=== PATIENT | male | born 1925 | race Caucasian/White ===

== ENCOUNTER 2017-04-14 16:28 | Inpatient (IN) | payer MEDICARE, OTHER ==
[2017-04-14] MEDS ORDERED: Pantoprazole 40 MG Vial IVPUSH ONE (16:59)
--- NOTE | 2017-04-14 17:46 | EDM.PDOC ---
ED HPI GENERAL MEDICAL PROBLEM - General Chief Complaint: General Stated Complaint: low hemoglobin, dark stools Time Seen by Provider: 04/14/17 16:37 Source of Information: Reports: Patient, Alf Records History Limitations: Reports: No Limitations, Other (Family says patient's memory is not very good at times) - History of Present Illness INITIAL COMMENTS - FREE TEXT/NARRATIVE: Patient is resident of [facility]. Noted to have dark stools today, lower Hgb 6.6, and appears weaker than usual. Sent by EMS for evaluation. Patient does not have much in the way of complaints, but said that he had a bit of abdominal discomfort earlier. He is not aware of any rectal bleeding. No fevers/ chills. No reported recent medication changes. No nausea/emesis. Has been eating ok. No HEENT/Resp/CV/Neuro changes. Patient has had stroke in past. Is on Coumadin. INR 3.0 today. Usually doctors with in [place]. No other changes on ROS. - Related Data Allergies Allergy/AdvReac Type Severity Reaction Status Date / Time No Known Allergies Allergy Verified 04/14/17 16:31 Home Meds: Home Meds Acetaminophen [Tylenol] 650 mg PO Q4HR 04/14/17 [History] Aspirin [Halfprin] 81 mg PO BRK 04/14/17 [History] Carvedilol [Carvedilol] 1 tab PO BID 04/14/17 [History] Doxepin HCl [Doxepin] 10 mg PO BEDTIME 04/14/17 [History] Furosemide [Lasix] 20 mg PO BID 04/14/17 [History] Loratadine [Claritin] 10 mg PO Q48H PRN 04/14/17 [History] Losartan Potassium [Cozaar] 50 mg PO DAILY@1600 04/14/17 [History] Lovastatin [Mevacor] 10 mg PO BEDTIME 04/14/17 [History] Multivitamin [Multivitamins] 1 cap PO DAILY 04/14/17 [History] Nitroglycerin [Nitrostat] 0.4 mg SL Q5M 04/14/17 [History] Ranitidine HCl [Zantac 75] 150 mg PO BID 04/14/17 [History] Sennosides/Docusate Sodium [Senokot-S Tablet] 1 tab PO BID PRN 04/14/17 [History ] Spironolactone [Spironolactone] 25 mg PO DAILY 04/14/17 [History] Ubidecarenone [Coq10] 100 mg PO DAILY 04/14/17 [History] Warfarin [Coumadin] 2.5 mg PO SUTUWETHFRSA@1600 04/14/17 [History] Warfarin [Coumadin] 5 mg PO MO@1600 04/14/17 [History] Past Medical History HEENT History: Reports: Allergic Rhinitis Cardiovascular History: Reports: Afib, CAD, Heart Failure, High Cholesterol, Hypertension, Other (See Below) (aortic valve insufficiency, mitral valve insufficiency) Genitourinary History: Reports: BPH, Chronic Renal Insuffiency, Other (See Below ) (obstructive/reflux uropathy) Musculoskeletal History: Reports: Osteoporosis Neurological History: Reports: CVA, Other (See Below) (Hemiplegia/hemiparesis on right side) Psychiatric History: Reports: Anxiety Hematologic History: Reports: Anemia - History Comment History Comment: also history of hypokalemia, muscle spasm, chronic pain, vitamin D deficiency. Social & Family History - Tobacco Use Smoking Status *Q: Never Smoker Second Hand Smoke Exposure: No - Recreational Drug Use Recreational Drug Use: No ED ROS GENERAL - Review of Systems Review Of Systems: See Below Constitutional: Reports: Weakness, Fatigue. Denies: Fever, Chills, Diaphoresis , Weight Loss, Weight Gain HEENT: Reports: No Symptoms Respiratory: Reports: No Symptoms Cardiovascular: Reports: No Symptoms GI/Abdominal: Reports: Abdominal Pain, Hematochezia. Denies: Constipation, Diarrhea, Distension, Nausea, Vomiting : Reports: No Symptoms Musculoskeletal: Reports: No Symptoms Skin: Reports: No Symptoms Neurological: Reports: No Symptoms Psychiatric: Reports: No Symptoms Hematologic/Lymphatic: Reports: No Symptoms ED EXAM, GENERAL - Physical Exam Exam: See Below Exam Limited By: No Limitations General Appearance: Alert, No Apparent Distress, Obese Eye Exam: Bilateral Eye: EOMI, PERRL Ears: Normal External Exam, Normal Canal, Other (bilateral cerumen blocks view of TMs) Nose: No: No Blood, Nasal Swelling, Nasal Drainage Throat/Mouth: Normal Inspection, Normal Lips, Normal Teeth (no dentures), Normal Oropharynx, Normal Voice, No Airway Compromise Head: Atraumatic, Normocephalic Neck: Supple, Non-Tender Respiratory/Chest: No Respiratory Distress, Lungs Clear, Normal Breath Sounds, No Accessory Muscle Use, Chest Non-Tender Cardiovascular: Normal Peripheral Pulses, Systolic Murmur, Irregularly Irregular Peripheral Pulses: 2+: Radial (L), Radial (R) GI/Abdominal: Normal Bowel Sounds, Soft, Non-Tender, No Distention, No Abnormal Bruit (Male) Exam: Deferred Rectal (Males) Exam: Normal Rectal Tone, Black Stool, Heme + Stool. No: Prostate Nodule Back Exam: Normal Inspection. No: CVA Tenderness (L), CVA Tenderness (R), Muscle Spasm, Paraspinal Tenderness, Vertebral Tenderness Extremities: Normal Inspection, Normal Capillary Refill, Other (mild discomfort with palpation of right lower leg, patient says it is always like that. Mild edema bilateral lower extremities. ) Neurological: Alert, Oriented, Normal Cognition, Other (Hemiplegia/hemiparesis on right side) Psychiatric: Normal Affect, Normal Mood Skin Exam: Warm, Dry, Other (pale) Course - Vital Signs Last Recorded V/S: Last Vital Signs Temp 36.4 C 04/14/17 18:54 Pulse 75 04/14/17 18:54 Resp 18 04/14/17 16:54 BP 96/31 L 04/14/17 18:54 Pulse Ox 83 L 04/14/17 18:54 - Orders/Labs/Meds Orders: Active Orders 24 hr Category Date Time Status PACKED CELLS [RED BLOOD CELLS LP] [BBK] Stat Lab 04/14/17 17:30 Results TYPE AND SCREEN [BBK] Stat Lab 04/14/17 17:30 Results Bisacodyl [Dulcolax] Med 04/15/17 18:00 Once 10 mg PO ONETIME ONE Polyethylene Glycol 3350 [MiraLAX] Med 04/16/17 12:00 Once 238 gm PO ONETIME ONE Sodium Chloride 0.9% [Saline Flush] Med 04/14/17 16:59 Active 10 ml FLUSH ASDIRECTED PRN Saline Lock Insert [OM.PC] Routine Oth 04/14/17 16:59 Ordered Medication Orders Bisacodyl (Dulcolax) 10 mg PO ONETIME ONE Stop: 04/15/17 18:01 Polyethylene Glycol (Miralax) 238 gm PO ONETIME ONE Stop: 04/16/17 12:01 Sodium Chloride (Saline Flush) 10 ml FLUSH ASDIRECTED PRN PRN Reason: Keep Vein Open Labs: Laboratory Tests 04/14/17 Range/Units 17:30 Blood Type O POSITIVE Gel Antibody Screen Negative Crossmatch See Detail Meds: Medications Generic Name Dose Route Start Last Admin Trade Name Freq PRN Reason Stop Dose Admin Bisacodyl 10 mg 04/15/17 18:00 Dulcolax PO 04/15/17 18:01 ONETIME ONE Polyethylene Glycol 238 gm 04/16/17 12:00 Miralax PO 04/16/17 12:01 ONETIME ONE Sodium Chloride 10 ml 04/14/17 16:59 Saline Flush FLUSH ASDIRECTED PRN Keep Vein Open Discontinued Medications Generic Name Dose Route Start Last Admin Trade Name Freq PRN Reason Stop Dose Admin Pantoprazole Sodium 80 mg 04/14/17 16:59 04/14/17 17:16 Protonix Iv IVPUSH 04/14/17 17:00 80 mg .BOLUS ONE Administration - Re-Assessments/Exams Free Text/Narrative Re-Assessment/Exam: 04/14/17 18:03 Patient admitted for treatment of GI bleed. Planned EGD and colonoscopy on . Protonix given in ER. Two units PRBC ordered. Departure - Departure Time of Disposition: 17:45 Disposition: Admitted As Inpatient 68 Condition: Good Clinical Impression: GI bleed Qualifiers: GI bleed type/associated pathology: unspecified gastrointestinal hemorrhage type Qualified Code(s): K92.2 - Gastrointestinal hemorrhage, unspecified - Discharge Information - Problem List & Annotations (1) GI bleed SNOMED Code(s): 80373723 Code(s): K92.2 - GASTROINTESTINAL HEMORRHAGE, UNSPECIFIED Status: Acute Current Visit: Yes Qualifiers: GI bleed type/associated pathology: unspecified gastrointestinal hemorrhage type Qualified Code(s): K92.2 - Gastrointestinal hemorrhage, unspecified (2) CAD (coronary artery disease) SNOMED Code(s): 84565632 Code(s): I25.10 - ATHSCL HEART DISEASE OF [place] CORONARY ARTERY W/O ANG PCTRS Status: Chronic Priority: Low Current Visit: No (3) CVA (cerebral vascular accident) SNOMED Code(s): 162064683 Code(s): I63.9 - CEREBRAL INFARCTION, UNSPECIFIED Status: Chronic Priority: Low Current Visit: No Annotation/Comment:: persistent right sided weakness Qualifiers: Laterality of affected vessel: right (4) CHF (congestive heart failure) SNOMED Code(s): 98243533 Code(s): I50.9 - HEART FAILURE, UNSPECIFIED Status: Chronic Priority: Low Current Visit: No Qualifiers: Congestive heart failure type: unspecified congestive heart failure type (5) HTN (hypertension) SNOMED Code(s): 94657436 Code(s): I10 - ESSENTIAL (PRIMARY) HYPERTENSION Status: Chronic Priority : Low Current Visit: No Qualifiers: Hypertension type: unspecified Qualified Code(s): I10 - Essential (primary ) hypertension (6) Afib SNOMED Code(s): 52511899 Code(s): I48.91 - UNSPECIFIED ATRIAL FIBRILLATION Status: Chronic Priority: Low Current Visit: No Qualifiers: Atrial fibrillation type: unspecified Qualified Code(s): I48.91 - Unspecified atrial fibrillation (7) Hyperlipidemia SNOMED Code(s): 67439294 Code(s): E78.5 - HYPERLIPIDEMIA, UNSPECIFIED Status: Chronic Priority: Low Current Visit: No Qualifiers: Hyperlipidemia type: unspecified Qualified Code(s): E78.5 - Hyperlipidemia , unspecified (8) Chronic renal disease SNOMED Code(s): 167777249 Code(s): N18.9 - CHRONIC KIDNEY DISEASE, UNSPECIFIED Status: Chronic Priority: Medium Current Visit: No Qualifiers: Chronic kidney disease stage: stage 4 (severe) Qualified Code(s): N18.4 - Chronic kidney disease, stage 4 (severe) (9) BPH (benign prostatic hyperplasia) SNOMED Code(s): 689192184, 751676691 Code(s): N40.0 - BENIGN PROSTATIC HYPERPLASIA WITHOUT LOWER URINRY TRACT SYMP Status: Chronic Priority: Low Current Visit: No Qualifiers: Lower urinary tract symptom detail: unspecified (10) Anxiety SNOMED Code(s): 21846312 Code(s): F41.9 - ANXIETY DISORDER, UNSPECIFIED Status: Chronic Priority: Low Current Visit: No (11) Allergic rhinitis SNOMED Code(s): 22164755 Code(s): J30.9 - ALLERGIC RHINITIS, UNSPECIFIED Status: Chronic Priority : Low Current Visit: No Qualifiers: Allergic rhinitis seasonality: unspecified seasonality (12) Anemia SNOMED Code(s): 620069416 Code(s): D64.9 - ANEMIA, UNSPECIFIED Status: Chronic Priority: High Current Visit: Yes Annotation/Comment:: Acute exacerbation due to GI bleed. - Problem List Review Problem List Initiated/Reviewed/Updated: Yes - My Orders Last 24 Hours: My Active Orders 04/14/17 16:59 Sodium Chloride 0.9% [Saline Flush] 10 ml FLUSH ASDIRECTED PRN Saline Lock Insert [OM.PC] Routine 04/14/17 17:30 PACKED CELLS [RED BLOOD CELLS LP] [BBK] Stat TYPE AND SCREEN [BBK] Stat 04/15/17 18:00 Bisacodyl [Dulcolax] 10 mg PO ONETIME ONE 04/16/17 12:00 Polyethylene Glycol 3350 [MiraLAX] 238 gm PO ONETIME ONE - Assessment/Plan Admission H&P: Please use this note as an admission H&P Last 24 Hours: My Active Orders 04/14/17 16:59 Sodium Chloride 0.9% [Saline Flush] 10 ml FLUSH ASDIRECTED PRN Saline Lock Insert [OM.PC] Routine 04/14/17 17:30 PACKED CELLS [RED BLOOD CELLS LP] [BBK] Stat TYPE AND SCREEN [BBK] Stat 04/15/17 18:00 Bisacodyl [Dulcolax] 10 mg PO ONETIME ONE 04/16/17 12:00 Polyethylene Glycol 3350 [MiraLAX] 238 gm PO ONETIME ONE Assessment:: GI bleed Plan: Bowel rest. Patient placed NPO except for water and ice chips. Protonix and IV fluids ordered. Continue to monitor Hgb/Hct. Two units PRBC ordered. Scheduled for EGD and colonoscopy this .
[2017-04-14] MEDS ORDERED: Ondansetron 4 MG/2 ML SDV IVPUSH PRN (19:53)
[2017-04-14] MEDS ORDERED: LORazepam 2 MG/ML MDV IV PRN (19:53)
[2017-04-14] MEDS ORDERED: Dextrose 5%-0.45% NaCl 1,000 ML IV SCH (20:00)
[2017-04-14] MEDS ORDERED: Nitroglycerin 0.4 MG Tab.SL SL PRN (21:05)
[2017-04-14] MEDS ORDERED: Furosemide 40 MG/4 ML VIAL IVPUSH ONE (22:00)
[2017-04-15] MEDS: Sodium Chloride 0.9% 10 ML Syringe FLUSH PRN ×2 (01:26→19:58)
[2017-04-15] MEDS: Nitroglycerin 0.4 MG Tab.SL SL SCH ×3 (02:09→02:11)
[2017-04-15] MEDS: Carvedilol 3.125 MG Tab PO SCH ×2 (08:05→17:51)
[2017-04-15] MEDS: Pantoprazole 40 MG Vial IVPUSH SCH ×2 (08:05→19:58)
[2017-04-15] MEDS ORDERED: Sodium Chloride 0.9% 250 ML IV SCH (16:00)
[2017-04-15] MEDS ORDERED: Bisacodyl 5 MG Tab PO ONE (18:00)
--- NOTE | 2017-04-15 20:40 | PCM.PN ---
- General Info Date of Service: 04/15/17 Functional Status: Reports: Pain Controlled - Review of Systems General: Reports: No Symptoms HEENT: Reports: No Symptoms Pulmonary: Reports: No Symptoms Cardiovascular: Reports: No Symptoms Gastrointestinal: Reports: No Symptoms, Other (Gastrointestinal bleeding) Musculoskeletal: Reports: No Symptoms Skin: Reports: No Symptoms Neurological: Reports: No Symptoms Psychiatric: Reports: No Symptoms - Patient Data Vitals - Most Recent: Last Vital Signs Temp 98.6 F 04/15/17 16:00 Pulse 73 04/15/17 17:51 Resp 16 04/15/17 16:00 BP 93/54 L 04/15/17 17:51 Pulse Ox 100 04/15/17 16:00 Weight - Most Recent: 219 lb 15.988 oz I&O - Last 24 Hours: Intake & Output 04/15/17 04/15/17 04/15/17 06:59 14:59 22:59 Intake Total 410 1000 Output Total 850 1150 500 Balance -440 -150 -500 Lab Results Last 24 Hours: Laboratory Results - last 24 hr 04/15/17 04/15/17 04/15/17 Range/Units 06:45 06:45 06:45 WBC 9.6 (4.0-10.2) K/uL RBC 2.54 L (4.33-5.41) M/uL Hgb 7.9 L (13.1-16.8) g/dL Hct 22.7 L* (39.0-49.0) % MCV 89.4 D (84.0-98.0) fL MCH 31.1 (28.2-33.3) pg MCHC 34.8 (31.7-36.0) g/dL RDW 13.6 (11.2-14.1) % Plt Count 160 (150-350) K/uL Neut % (Auto) 74.8 (45.0-80.0) % Lymph % (Auto) 11.1 (10.0-50.0) % [place] % (Auto) 13.3 (2.0-14.0) % Eos % (Auto) 0.7 (0.0-5.0) % Baso % (Auto) 0.1 (0.0-2.0) % Neut # (Auto) 7.18 H (1.40-7.00) K/uL Lymph # (Auto) 1.07 (0.50-3.50) K/uL [place] # (Auto) 1.28 H (0.00-1.00) K/uL Eos # (Auto) 0.07 (0.00-0.50) K/uL Baso # (Auto) 0.01 (0.00-0.20) K/uL PT 27.0 H (9.8-11.7) SEC INR 2.4 Sodium 135 L (136-145) mmol/L Potassium 4.4 (3.5-5.1) mmol/L Chloride 103 (98-107) mmol/L Carbon Dioxide 21.2 (21.0-32.0) mmol/L BUN 130 H* (7-18) mg/dL Creatinine 2.97 H (0.51-1.17) mg/dL Est Cr Clr Drug Dosing 17.89 mL/min Estimated GFR (MDRD) 20 mL/min Glucose 127 H (74-106) mg/dL Calcium 8.3 L (8.5-10.1) mg/dL [id number]-M-Rhbmqlcoqrh Pept 4111 H (0-125) pg/mL 04/15/17 Range/Units 16:30 WBC 11.7 H (4.0-10.2) K/uL RBC 2.58 L (4.33-5.41) M/uL Hgb 8.0 L (13.1-16.8) g/dL Hct 23.5 L* (39.0-49.0) % MCV 91.1 (84.0-98.0) fL MCH 31.0 (28.2-33.3) pg MCHC 34.0 (31.7-36.0) g/dL RDW 14.0 (11.2-14.1) % Plt Count 186 (150-350) K/uL Neut % (Auto) 82.6 H (45.0-80.0) % Lymph % (Auto) 7.1 L (10.0-50.0) % [place] % (Auto) 9.0 (2.0-14.0) % Eos % (Auto) 1.1 (0.0-5.0) % Baso % (Auto) 0.2 (0.0-2.0) % Neut # (Auto) 9.63 H (1.40-7.00) K/uL Lymph # (Auto) 0.83 (0.50-3.50) K/uL [place] # (Auto) 1.05 H (0.00-1.00) K/uL Eos # (Auto) 0.13 (0.00-0.50) K/uL Baso # (Auto) 0.02 (0.00-0.20) K/uL PT (9.8-11.7) SEC INR Sodium (136-145) mmol/L Potassium (3.5-5.1) mmol/L Chloride (98-107) mmol/L Carbon Dioxide (21.0-32.0) mmol/L BUN (7-18) mg/dL Creatinine (0.51-1.17) mg/dL Est Cr Clr Drug Dosing mL/min Estimated GFR (MDRD) mL/min Glucose (74-106) mg/dL Calcium (8.5-10.1) mg/dL [id number]-G-Swrwjqeewtv Pept (0-125) pg/mL Med Orders - Current: Current Medications Carvedilol (Coreg) 3.125 mg PO BID [facility] Last Admin: 04/15/17 17:51 Dose: Not Given Furosemide (Lasix) 40 mg IV ONETIME ONE Stop: 04/15/17 21:01 Sodium Chloride (Normal Saline) 250 mls @ 75 mls/hr IV ASDIRECTED [facility] Lorazepam (Ativan) 1 mg IV Q6H PRN PRN Reason: Nausea/Vomiting Ondansetron HCl (Zofran) 4 mg IVPUSH Q6H PRN PRN Reason: Nausea/Vomiting Pantoprazole Sodium (Protonix Iv) 40 mg IVPUSH Q12H [facility] Last Admin: 04/15/17 19:58 Dose: 40 mg Polyethylene Glycol (Miralax) 238 gm PO ONETIME ONE Stop: 04/16/17 12:01 Sodium Chloride (Saline Flush) 10 ml FLUSH ASDIRECTED PRN PRN Reason: Keep Vein Open Last Admin: 04/15/17 19:58 Dose: 10 ml Discontinued Medications Bisacodyl (Dulcolax) 10 mg PO ONETIME ONE Stop: 04/15/17 18:01 Last Admin: 04/15/17 20:00 Dose: 10 mg Furosemide (Lasix) 40 mg IVPUSH ONETIME ONE Stop: 04/14/17 22:01 Last Admin: 04/14/17 22:59 Dose: 40 mg Dextrose/Sodium Chloride (Dextrose 5%-1/2 Ns) 1,000 mls @ 100 mls/hr IV ASDIRECTED [facility] Last Admin: 04/15/17 01:26 Dose: 100 mls/hr Nitroglycerin (Nitrostat) 0.4 mg SL Q5M [facility] Last Admin: 04/15/17 02:11 Dose: Not Given Nitroglycerin (Nitrostat) 0.4 mg SL Q5M PRN PRN Reason: Chest Pain Stop: 04/14/17 21:16 Pantoprazole Sodium (Protonix Iv) 80 mg IVPUSH .BOLUS ONE Stop: 04/14/17 17:00 Last Admin: 04/14/17 17:16 Dose: 80 mg - Exam General: Alert, Oriented HEENT: Pupils Equal, Pupils Reactive, EOMI, Mucous Membr. Moist/[place] Neck: Supple Lungs: Clear to Auscultation, Normal Respiratory Effort Cardiovascular: Regular Rate, Regular Rhythm GI/Abdominal Exam: Normal Bowel Sounds, Soft, Non-Tender, No Organomegaly, No Distention, No Abnormal Bruit, No Mass, Pelvis Stable Back Exam: Normal Inspection, Full Range of Motion Extremities: Normal Inspection, Normal Range of Motion, Non-Tender, No Pedal Edema, Normal Capillary Refill Skin: Warm, Dry, Intact Wound/Incisions: Healing Well Neurological: No New Focal Deficit Psy/Mental Status: Alert, Normal Affect, Normal Mood - Problem List & Annotations (1) Acute renal failure syndrome SNOMED Code(s): 68480412 Code(s): N17.9 - ACUTE KIDNEY FAILURE, UNSPECIFIED Status: Acute Priority : High Current Visit: Yes Qualifiers: Acute renal failure type: unspecified Qualified Code(s): N17.9 - Acute kidney failure, unspecified (2) GI bleed SNOMED Code(s): 82797026 Code(s): K92.2 - GASTROINTESTINAL HEMORRHAGE, UNSPECIFIED Status: Acute Current Visit: Yes Qualifiers: GI bleed type/associated pathology: unspecified gastrointestinal hemorrhage type Qualified Code(s): K92.2 - Gastrointestinal hemorrhage, unspecified (3) Anemia SNOMED Code(s): 002239140 Code(s): D64.9 - ANEMIA, UNSPECIFIED Status: Chronic Priority: High Current Visit: Yes Annotation/Comment:: Acute exacerbation due to GI bleed. - Problem List Review Problem List Initiated/Reviewed/Updated: Yes - My Orders Last 24 Hours: My Active Orders 04/15/17 15:51 Transfuse RBC [Transfuse Red Blood Cells] [COMM] Urgent Transfuse Red Blood Cells [COMM] Urgent 04/15/17 15:52 Verify Patient Consent Obtain [RC] ASDIRECTED 04/15/17 16:00 Sodium Chloride 0.9% [Normal Saline] 250 ml IV ASDIRECTED 04/15/17 16:04 Transfuse RBC [Transfuse Red Blood Cells] [COMM] Urgent Transfuse Red Blood Cells [COMM] Urgent 04/15/17 16:06 Verify Patient Consent Obtain [RC] ASDIRECTED 04/15/17 21:00 Furosemide [Lasix] 40 mg IV ONETIME ONE - Assessment Assessment:: Anemia secondary to GI bleed Acute renal failure secondary to bleed and dehydration Plan at this time we will go ahead and transfuse him 2 units secondary to the fact that his hemoglobin has dropped to 8 asymptomatic feels weak discuss with them colonoscopy and gastroscopy which he is not sure if he wants at this time he will discuss it with family and I told him that that was fine Transfuse 2 units now and recheck his hemoglobin in the morning and 2 hours posttransfusion - Plan Plan:: Recheck hemoglobin 2 hours posttransfusion and in the morning
[2017-04-15] MEDS ORDERED: Furosemide 40 MG/4 ML VIAL IV ONE (21:00)
[2017-04-16] MEDS: Pantoprazole 40 MG Vial IVPUSH SCH ×2 (07:52→20:18)
[2017-04-16] MEDS: Sodium Chloride 0.9% 10 ML Syringe FLUSH PRN (07:53)
[2017-04-16] MEDS: Carvedilol 3.125 MG Tab PO SCH ×2 (07:53→17:42)
[2017-04-16] MEDS ORDERED: Sodium Chloride 0.9% 1,000 ML IV SCH (08:30)
[2017-04-16] MEDS ORDERED: Polyethylene Glycol 3350 Powder 238 GM Bot PO ONE (12:00)
[2017-04-16] MEDS ORDERED: Furosemide 40 MG/4 ML VIAL IVPUSH ONE ×2 (12:00→19:25)
[2017-04-16] MEDS ORDERED: Furosemide 40 MG/4 ML VIAL IVPUSH SCH (12:00)
[2017-04-16] MEDS ORDERED: Sodium Chloride 0.9% 1,000 ML IV ONE (13:56)
--- NOTE | 2017-04-16 14:25 | PCM.PN ---
- General Info Date of Service: 04/16/17 Admission Dx/Problem (Free Text): GI bleed, anemia Subjective Update: Patient overall feels better. Has more energy. Functional Status: Reports: Pain Controlled, Tolerating Diet (clear liquids. ), Ambulating, Urinating. Denies: New Symptoms - Review of Systems General: Reports: Weakness, Fatigue. Denies: Fever, Chills HEENT: Reports: No Symptoms Pulmonary: Reports: No Symptoms Cardiovascular: Reports: No Symptoms Gastrointestinal: Reports: Other (uncertain if he still notes darker stools. ). Denies: Abdominal Pain, Decreased Appetite, Nausea, Vomiting Genitourinary: Reports: No Symptoms Musculoskeletal: Reports: No Symptoms Skin: Reports: No Symptoms Neurological: Reports: No Symptoms Psychiatric: Reports: No Symptoms - Patient Data Vitals - Most Recent: Last Vital Signs Temp 37.0 C 04/16/17 11:27 Pulse 51 L 04/16/17 11:27 Resp 20 04/16/17 11:27 BP 114/47 L 04/16/17 11:27 Pulse Ox 100 04/16/17 11:27 Weight - Most Recent: 99.79 kg I&O - Last 24 Hours: Intake & Output 04/15/17 04/16/17 04/16/17 22:59 06:59 14:59 Intake Total 50 1420 Output Total 1200 1525 250 Balance -1150 -105 -250 Lab Results Last 24 Hours: Laboratory Results - last 24 hr 04/15/17 04/16/17 04/16/17 Range/Units 16:30 07:00 07:00 WBC 11.7 H 9.8 (4.0-10.2) K/uL RBC 2.58 L 3.03 L (4.33-5.41) M/uL Hgb 8.0 L 9.6 L D (13.1-16.8) g/dL Hct 23.5 L* 27.2 L (39.0-49.0) % MCV 91.1 89.8 (84.0-98.0) fL MCH 31.0 31.7 (28.2-33.3) pg MCHC 34.0 35.3 (31.7-36.0) g/dL RDW 14.0 13.8 (11.2-14.1) % Plt Count 186 162 (150-350) K/uL Neut % (Auto) 82.6 H 74.1 (45.0-80.0) % Lymph % (Auto) 7.1 L 11.7 (10.0-50.0) % [place] % (Auto) 9.0 13.8 (2.0-14.0) % Eos % (Auto) 1.1 0.2 (0.0-5.0) % Baso % (Auto) 0.2 0.2 (0.0-2.0) % Neut # (Auto) 9.63 H 7.27 H (1.40-7.00) K/uL Lymph # (Auto) 0.83 1.15 (0.50-3.50) K/uL [place] # (Auto) 1.05 H 1.35 H (0.00-1.00) K/uL Eos # (Auto) 0.13 0.02 (0.00-0.50) K/uL Baso # (Auto) 0.02 0.02 (0.00-0.20) K/uL Sodium 137 (136-145) mmol/L Potassium 4.3 (3.5-5.1) mmol/L Chloride 103 (98-107) mmol/L Carbon Dioxide 22.0 (21.0-32.0) mmol/L BUN 126 H* (7-18) mg/dL Creatinine 2.73 H (0.51-1.17) mg/dL Est Cr Clr Drug Dosing 19.46 mL/min Estimated GFR (MDRD) 22 mL/min Glucose 111 H (74-106) mg/dL Calcium 8.3 L (8.5-10.1) mg/dL Med Orders - Current: Current Medications Carvedilol (Coreg) 3.125 mg PO BID [facility] Last Admin: 04/16/17 07:53 Dose: 3.125 mg Sodium Chloride (Normal Saline) 1,000 mls @ 250 mls/hr IV ASDIRECTED [facility] Last Admin: 04/16/17 09:20 Dose: 250 mls/hr Sodium Chloride (Normal Saline) 1,000 mls @ 100 mls/hr IV .BOLUS ONE Stop: 04/16/17 23:55 Lorazepam (Ativan) 1 mg IV Q6H PRN PRN Reason: Nausea/Vomiting Ondansetron HCl (Zofran) 4 mg IVPUSH Q6H PRN PRN Reason: Nausea/Vomiting Pantoprazole Sodium (Protonix Iv) 40 mg IVPUSH Q12H [facility] Last Admin: 04/16/17 07:52 Dose: 40 mg Sodium Chloride (Saline Flush) 10 ml FLUSH ASDIRECTED PRN PRN Reason: Keep Vein Open Last Admin: 04/16/17 07:53 Dose: 10 ml Discontinued Medications Bisacodyl (Dulcolax) 10 mg PO ONETIME ONE Stop: 04/15/17 18:01 Last Admin: 04/15/17 20:00 Dose: 10 mg Furosemide (Lasix) 40 mg IVPUSH ONETIME ONE Stop: 04/14/17 22:01 Last Admin: 04/14/17 22:59 Dose: 40 mg Furosemide (Lasix) 40 mg IV ONETIME ONE Stop: 04/15/17 21:01 Last Admin: 04/16/17 00:17 Dose: 40 mg Furosemide (Lasix) 40 mg IVPUSH ONETIME ONE Stop: 04/16/17 12:01 Last Admin: 04/16/17 11:24 Dose: 40 mg Dextrose/Sodium Chloride (Dextrose 5%-1/2 Ns) 1,000 mls @ 100 mls/hr IV ASDIRECTED [facility] Last Admin: 04/15/17 01:26 Dose: 100 mls/hr Sodium Chloride (Normal Saline) 250 mls @ 75 mls/hr IV ASDIRECTED [facility] Last Admin: 04/15/17 22:00 Dose: 75 mls/hr Lactated Ringer's (Ringers, Lactated) 1,000 mls @ 125 mls/hr IV ASDIRECTED [facility] Nitroglycerin (Nitrostat) 0.4 mg SL Q5M [facility] Last Admin: 04/15/17 02:11 Dose: Not Given Nitroglycerin (Nitrostat) 0.4 mg SL Q5M PRN PRN Reason: Chest Pain Stop: 04/14/17 21:16 Pantoprazole Sodium (Protonix Iv) 80 mg IVPUSH .BOLUS ONE Stop: 04/14/17 17:00 Last Admin: 04/14/17 17:16 Dose: 80 mg Polyethylene Glycol (Miralax) 238 gm PO ONETIME ONE Stop: 04/16/17 12:01 Last Admin: 04/16/17 12:32 Dose: 238 gm - Exam General: Alert, Oriented, Cooperative, No Acute Distress HEENT: Pupils Equal, Pupils Reactive, EOMI, Mucous Membr. Moist/[place] Neck: Supple Lungs: Clear to Auscultation, Normal Respiratory Effort Cardiovascular: No Murmurs, Irregular Rhythm GI/Abdominal Exam: Normal Bowel Sounds, Soft, Non-Tender, No Distention, No Abnormal Bruit (Male) Exam: Deferred Back Exam: No: CVA Tenderness (L), CVA Tenderness (R), Muscle Spasm, Paraspinal Tenderness, Vertebral Tenderness Extremities: Normal Inspection (no change noted) Peripheral Pulses: 2+: Radial (L), Radial (R) Skin: Warm, Dry Neurological: No New Focal Deficit Psy/Mental Status: Alert, Normal Affect, Normal Mood - Problem List & Annotations (1) GI bleed SNOMED Code(s): 29342757 Code(s): K92.2 - GASTROINTESTINAL HEMORRHAGE, UNSPECIFIED Status: Acute Current Visit: Yes Qualifiers: GI bleed type/associated pathology: unspecified gastrointestinal hemorrhage type Qualified Code(s): K92.2 - Gastrointestinal hemorrhage, unspecified Annotation/Comment:: EGD and colonscopy scheduled for tomorrow. (2) CAD (coronary artery disease) SNOMED Code(s): 16198401 Code(s): I25.10 - ATHSCL HEART DISEASE OF [place] CORONARY ARTERY W/O ANG PCTRS Status: Chronic Priority: Low Current Visit: No Annotation/Comment :: currently stable (3) CVA (cerebral vascular accident) SNOMED Code(s): 116273697 Code(s): I63.9 - CEREBRAL INFARCTION, UNSPECIFIED Status: Chronic Priority: Low Current Visit: No Annotation/Comment:: persistent right sided weakness (4) CHF (congestive heart failure) SNOMED Code(s): 91266159 Code(s): I50.9 - HEART FAILURE, UNSPECIFIED Status: Chronic Priority: Low Current Visit: No Qualifiers: Congestive heart failure type: unspecified congestive heart failure type Annotation/Comment:: currently stable (5) HTN (hypertension) SNOMED Code(s): 35606063 Code(s): I10 - ESSENTIAL (PRIMARY) HYPERTENSION Status: Chronic Priority : Low Current Visit: No Qualifiers: Hypertension type: unspecified Qualified Code(s): I10 - Essential (primary ) hypertension Annotation/Comment:: currently stable (6) Afib SNOMED Code(s): 56927735 Code(s): I48.91 - UNSPECIFIED ATRIAL FIBRILLATION Status: Chronic Priority: Low Current Visit: No Qualifiers: Atrial fibrillation type: unspecified Qualified Code(s): I48.91 - Unspecified atrial fibrillation (7) Hyperlipidemia SNOMED Code(s): 10527754 Code(s): E78.5 - HYPERLIPIDEMIA, UNSPECIFIED Status: Chronic Priority: Low Current Visit: No Qualifiers: Hyperlipidemia type: unspecified Qualified Code(s): E78.5 - Hyperlipidemia , unspecified (8) Chronic renal disease SNOMED Code(s): 546908642 Code(s): N18.9 - CHRONIC KIDNEY DISEASE, UNSPECIFIED Status: Chronic Priority: Medium Current Visit: No Qualifiers: Chronic kidney disease stage: stage 4 (severe) Qualified Code(s): N18.4 - Chronic kidney disease, stage 4 (severe) (9) BPH (benign prostatic hyperplasia) SNOMED Code(s): 686060743, 871245219 Code(s): N40.0 - BENIGN PROSTATIC HYPERPLASIA WITHOUT LOWER URINRY TRACT SYMP Status: Chronic Priority: Low Current Visit: No Qualifiers: Lower urinary tract symptom detail: unspecified (10) Anxiety SNOMED Code(s): 88833887 Code(s): F41.9 - ANXIETY DISORDER, UNSPECIFIED Status: Chronic Priority: Low Current Visit: No (11) Allergic rhinitis SNOMED Code(s): 24086419 Code(s): J30.9 - ALLERGIC RHINITIS, UNSPECIFIED Status: Chronic Priority : Low Current Visit: No Qualifiers: Allergic rhinitis seasonality: unspecified seasonality (12) Anemia SNOMED Code(s): 816119307 Code(s): D64.9 - ANEMIA, UNSPECIFIED Status: Chronic Priority: High Current Visit: Yes Annotation/Comment:: Acute exacerbation due to GI bleed. Hemoglobin now above 9 after tranfusions. - Problem List Review Problem List Initiated/Reviewed/Updated: Yes - My Orders Last 24 Hours: My Active Orders 04/16/17 13:56 Sodium Chloride 0.9% [Normal Saline] 1,000 ml IV .BOLUS 04/16/17 Lunch Clear Liquid Diet [DIET] 04/17/17 07:00 Verify Patient Consent Obtain [RC] ASDIRECTED 04/17/17 Breakfast Nothing per Oral After Midnight Diet [DIET] - Assessment Assessment:: GI bleed, anemia. Improved since receiving PRBCs. - Plan Plan:: Continue to monitor HGB. Patient is willing to undergo EGD and coloscopy tomorrow. Continue to monitor renal status. Clear liquid diet.
[2017-04-16] MEDS ORDERED: Furosemide 20 MG/2 ML VIAL IVPUSH ONE (19:26)
[2017-04-17] MEDS: Sodium Chloride 0.9% 10 ML Syringe FLUSH PRN ×4 (07:31→20:37)
[2017-04-17] MEDS: Pantoprazole 40 MG Vial IVPUSH SCH ×2 (07:31→20:37)
[2017-04-17] MEDS ORDERED: Propofol 200 MG/20 ML SDV ONE ×2 (08:00→09:07)
[2017-04-17] MEDS ORDERED: Lactated Ringers 1,000 ML IV SCH ×2 (08:00)
[2017-04-17] MEDS ORDERED: Furosemide 20 MG/2 ML VIAL IVPUSH ONE (08:00)
[2017-04-17] MEDS: Carvedilol 3.125 MG Tab PO SCH ×2 (08:11→17:11)
--- NOTE | 2017-04-17 09:38 | PCM.HPR ---
H & P Addendum review - H & P Addendum Review Date of Original H & P: 04/14/17 Date Reviewed: 04/17/17 Patient was Examined: No Changes (Still had melena with the prep last pm)
--- NOTE | 2017-04-17 09:40 | PCM.OPNOTE ---
- General Post-Op/Procedure Note Date of Surgery/Procedure: 04/17/17 Operative Procedure(s): EGD with Bx. Colonoscopy Findings: Healing Ulcers of Antrum Pre Op Diagnosis: GI Bleed Post-Op Diagnosis: Same Anesthesia Technique: MAC Primary Surgeon: Oh Bergman Pathology: Stomach antrum EBL in mLs: 0 Complications: None Condition: Good Free Text/Narrative:: Intake & Output 04/16/17 04/17/17 04/17/17 22:59 06:59 14:59 Intake Total 1895 1000 600 Output Total 425 450 Balance 1895 575 150
--- NOTE | 2017-04-17 13:51 | OR ---
Date of Procedure: 04/17/2017 PREOPERATIVE DIAGNOSIS: Gastrointestinal bleed. POSTOPERATIVE DIAGNOSES: 1. Ulcers of the antrum of the stomach. 2. Sigmoid diverticulosis. PROCEDURES: 1. EGD with biopsy. 2. Colonoscopy. ANESTHESIA: IV sedation. PROCEDURE IN DETAIL: Patient was brought to the procedure room, where IV sedation was administered and the oral bite block placed. Upper endoscope was advanced into the esophagus under direct vision without difficulty. Vocal cords were viewed and were normal. The scope was advanced to the 3rd portion of the duodenum. Duodenum and pylorus were normal. In the antrum were 2 healing gastric ulcers up to 5 mm in diameter. There was evidence of chronic inflammation. There was no evidence of active or recent bleeding. I did take 2 biopsies from the antrum to check for Helicobacter pylori. The remaining body and fundus were normal. Retroflexion was normal. Air was removed from the stomach and the scope withdrawn through the remaining esophagus which appears normal. The patient tolerated the procedure well. Next, colonoscopy was performed after digital rectal exam was performed, which was normal. Colonoscope was inserted and advanced to the level of the cecum with some difficulty getting through a tortuous colon. With pressure on the abdomen, I was able to get to the cecum, which was confirmed by identifying the appendiceal lumen and ileocecal valve. Prep was fair with some thick stool remaining in area that was mostly suctioned and irrigated. Upon withdrawing the scope, the ascending, transverse, and descending colon were normal in appearance. Sigmoid colon had a small diverticula present. Rectum was normal and retroflexion was normal. Air was removed and the scope withdrawn. Patient tolerated the procedure well. Returned to recovery in stable condition. The patient will be allowed the eat and continue his antacid medications. KATTY REY MD /[id number]
--- NOTE | 2017-04-17 17:32 | PCM.PN ---
- General Info Date of Service: 04/17/17 Admission Dx/Problem (Free Text): GI bleed, anemia Subjective Update: Patient overall feels better. Has more energy. Functional Status: Reports: Pain Controlled - Review of Systems General: Reports: Weakness HEENT: Reports: No Symptoms Pulmonary: Reports: No Symptoms Cardiovascular: Reports: No Symptoms Gastrointestinal: Reports: No Symptoms Genitourinary: Reports: No Symptoms Musculoskeletal: Reports: No Symptoms Skin: Reports: No Symptoms Neurological: Reports: No Symptoms Psychiatric: Reports: No Symptoms - Patient Data Vitals - Most Recent: Last Vital Signs Temp 97 F 04/17/17 11:37 Pulse 63 04/17/17 11:37 Resp 18 04/17/17 11:37 BP 110/59 L 04/17/17 17:11 Pulse Ox 100 04/17/17 11:37 Weight - Most Recent: 219 lb 15.988 oz I&O - Last 24 Hours: Intake & Output 04/17/17 04/17/17 04/17/17 06:59 14:59 22:59 Intake Total 1000 900 Output Total 425 1075 Balance 575 -175 Lab Results Last 24 Hours: Laboratory Results - last 24 hr 04/17/17 04/17/17 Range/Units 06:55 06:55 WBC 7.6 (4.0-10.2) K/uL RBC 2.91 L (4.33-5.41) M/uL Hgb 9.1 L (13.1-16.8) g/dL Hct 26.2 L (39.0-49.0) % MCV 90.0 (84.0-98.0) fL MCH 31.3 (28.2-33.3) pg MCHC 34.7 (31.7-36.0) g/dL RDW 13.8 (11.2-14.1) % Plt Count 167 (150-350) K/uL Neut % (Auto) 66.9 (45.0-80.0) % Lymph % (Auto) 16.0 (10.0-50.0) % [place] % (Auto) 13.5 (2.0-14.0) % Eos % (Auto) 3.3 (0.0-5.0) % Baso % (Auto) 0.3 (0.0-2.0) % Neut # (Auto) 5.12 (1.40-7.00) K/uL Lymph # (Auto) 1.22 (0.50-3.50) K/uL [place] # (Auto) 1.03 H (0.00-1.00) K/uL Eos # (Auto) 0.25 (0.00-0.50) K/uL Baso # (Auto) 0.02 (0.00-0.20) K/uL Sodium 138 (136-145) mmol/L Potassium 3.6 (3.5-5.1) mmol/L Chloride 105 (98-107) mmol/L Carbon Dioxide 22.1 (21.0-32.0) mmol/L BUN 101 H* D (7-18) mg/dL Creatinine 2.58 H (0.51-1.17) mg/dL Est Cr Clr Drug Dosing 20.59 mL/min Estimated GFR (MDRD) 24 mL/min Glucose 95 (74-106) mg/dL Calcium 8.0 L (8.5-10.1) mg/dL David Results Last 24 Hours: Microbiology 04/16/17 15:22 Stool Occult Blood (DAVID) - Final Stool / Feces Med Orders - Current: Current Medications Carvedilol (Coreg) 3.125 mg PO BID [facility] Last Admin: 04/17/17 17:11 Dose: 3.125 mg Lactated Ringer's (Ringers, Lactated) 1,000 mls @ 125 mls/hr IV ASDIRECTED [facility] Last Admin: 04/17/17 07:30 Dose: 125 mls/hr Lorazepam (Ativan) 1 mg IV Q6H PRN PRN Reason: Nausea/Vomiting Ondansetron HCl (Zofran) 4 mg IVPUSH Q6H PRN PRN Reason: Nausea/Vomiting Pantoprazole Sodium (Protonix Iv) 40 mg IVPUSH Q12H [facility] Last Admin: 04/17/17 07:31 Dose: 40 mg Sodium Chloride (Saline Flush) 10 ml FLUSH ASDIRECTED PRN PRN Reason: Keep Vein Open Last Admin: 04/17/17 08:12 Dose: 10 ml Discontinued Medications Bisacodyl (Dulcolax) 10 mg PO ONETIME ONE Stop: 04/15/17 18:01 Last Admin: 04/15/17 20:00 Dose: 10 mg Furosemide (Lasix) 40 mg IVPUSH ONETIME ONE Stop: 04/14/17 22:01 Last Admin: 04/14/17 22:59 Dose: 40 mg Furosemide (Lasix) 40 mg IV ONETIME ONE Stop: 04/15/17 21:01 Last Admin: 04/16/17 00:17 Dose: 40 mg Furosemide (Lasix) 40 mg IVPUSH ONETIME ONE Stop: 04/16/17 12:01 Last Admin: 04/16/17 11:24 Dose: 40 mg Furosemide (Lasix) 20 mg IVPUSH NOW ONE Stop: 04/16/17 19:26 Last Admin: 04/16/17 20:21 Dose: Not Given Furosemide (Lasix) 20 mg IVPUSH ONETIME ONE Stop: 04/16/17 19:27 Last Admin: 04/16/17 20:18 Dose: 20 mg Furosemide (Lasix) 20 mg IVPUSH ONETIME ONE Stop: 04/17/17 08:01 Last Admin: 04/17/17 07:31 Dose: 20 mg Dextrose/Sodium Chloride (Dextrose 5%-1/2 Ns) 1,000 mls @ 100 mls/hr IV ASDIRECTED [facility] Last Admin: 04/15/17 01:26 Dose: 100 mls/hr Sodium Chloride (Normal Saline) 250 mls @ 75 mls/hr IV ASDIRECTED [facility] Last Admin: 04/15/17 22:00 Dose: 75 mls/hr Sodium Chloride (Normal Saline) 1,000 mls @ 250 mls/hr IV ASDIRECTED [facility] Last Admin: 04/16/17 09:20 Dose: 250 mls/hr Lactated Ringer's (Ringers, Lactated) 1,000 mls @ 125 mls/hr IV ASDIRECTED [facility] Sodium Chloride (Normal Saline) 1,000 mls @ 100 mls/hr IV .BOLUS ONE Stop: 04/16/17 23:55 Last Admin: 04/16/17 15:06 Dose: 100 mls/hr Nitroglycerin (Nitrostat) 0.4 mg SL Q5M [facility] Last Admin: 04/15/17 02:11 Dose: Not Given Nitroglycerin (Nitrostat) 0.4 mg SL Q5M PRN PRN Reason: Chest Pain Stop: 04/14/17 21:16 Pantoprazole Sodium (Protonix Iv) 80 mg IVPUSH .BOLUS ONE Stop: 04/14/17 17:00 Last Admin: 04/14/17 17:16 Dose: 80 mg Polyethylene Glycol (Miralax) 238 gm PO ONETIME ONE Stop: 04/16/17 12:01 Last Admin: 04/16/17 12:32 Dose: 238 gm Propofol (Diprivan 20 Ml) Confirm Administered Dose 400 mg .ROUTE .STK-MED ONE Stop: 04/17/17 08:01 - Exam General: Alert, Oriented HEENT: Pupils Equal, Pupils Reactive, EOMI, Mucous Membr. Moist/[place] Neck: Supple Lungs: Clear to Auscultation, Normal Respiratory Effort Cardiovascular: No Murmurs, Irregular Rhythm GI/Abdominal Exam: Normal Bowel Sounds, Non-Tender, No Distention Back Exam: Normal Inspection, Full Range of Motion Extremities: Normal Inspection, Normal Range of Motion, Non-Tender, No Pedal Edema, Normal Capillary Refill Skin: Warm, Dry, Intact Physical Findings Comments:: Patient underwent gastroscopy and colonoscopy no active bleeding was seen hemoglobin stable we'll restart all medications with plan to discharge home tomorrow - Problem List & Annotations (1) Acute renal failure syndrome SNOMED Code(s): 03069465 Code(s): N17.9 - ACUTE KIDNEY FAILURE, UNSPECIFIED Status: Acute Priority : High Current Visit: Yes Qualifiers: Acute renal failure type: unspecified Qualified Code(s): N17.9 - Acute kidney failure, unspecified (2) GI bleed SNOMED Code(s): 12167733 Code(s): K92.2 - GASTROINTESTINAL HEMORRHAGE, UNSPECIFIED Status: Acute Current Visit: Yes Qualifiers: GI bleed type/associated pathology: unspecified gastrointestinal hemorrhage type Qualified Code(s): K92.2 - Gastrointestinal hemorrhage, unspecified Annotation/Comment:: EGD and colonscopy scheduled for today. (3) Anemia SNOMED Code(s): 638391445 Code(s): D64.9 - ANEMIA, UNSPECIFIED Status: Chronic Priority: High Current Visit: Yes Annotation/Comment:: Acute exacerbation due to GI bleed. Hemoglobin now above 9 after tranfusions. (4) GI bleed SNOMED Code(s): 91658994 Code(s): K92.2 - GASTROINTESTINAL HEMORRHAGE, UNSPECIFIED Status: Acute Current Visit: Yes - Problem List Review Problem List Initiated/Reviewed/Updated: Yes - Assessment Assessment:: GI bleed, anemia. Improved since receiving PRBCs. - Plan Plan:: Continue to monitor HGB. Patient underwent colonoscopy today no active bleed will discharge tomorrow restarted on her medications today.
[2017-04-18] MEDS: Sodium Chloride 0.9% 10 ML Syringe FLUSH PRN (08:06)
[2017-04-18] MEDS: Pantoprazole 40 MG Vial IVPUSH SCH (08:06)
[2017-04-18] MEDS: Carvedilol 3.125 MG Tab PO SCH (08:45)
[2017-04-18 08:46] VITALS: BP 112/42
--- NOTE | 2017-04-18 08:51 | PCM.DCSUM1 ---
Discharge Summary - Hospital Course Free Text/Narrative:: Lloyd Sandoval is a 89-year-old gentleman was admitted with upper GI bleed patient had to be transfused multiple times while an inpatient yesterday he underwent gastroscopy and colonoscopy was found to have ulcers in the interim that were not bleeding at this time at this time patient is stable will be discharged home on his regular medications plus Prilosec 40 twice a day for 15 days and then once a day hgb stable at 9.2 - Discharge Data Discharge Date: 04/18/17 Discharge Disposition: Home, Self-Care 01 Condition: Good - Discharge Diagnosis/Problem(s) (1) Acute renal failure syndrome SNOMED Code(s): 93527288 ICD Code: N17.9 - ACUTE KIDNEY FAILURE, UNSPECIFIED Status: Acute Priority: High Current Visit: Yes Qualifiers: Acute renal failure type: unspecified Qualified Code(s): N17.9 - Acute kidney failure, unspecified (2) GI bleed SNOMED Code(s): 05181585 ICD Code: K92.2 - GASTROINTESTINAL HEMORRHAGE, UNSPECIFIED Status: Acute Current Visit: Yes Problem Details: EGD and colonscopy scheduled for today. Qualifiers: GI bleed type/associated pathology: unspecified gastrointestinal hemorrhage type Qualified Code(s): K92.2 - Gastrointestinal hemorrhage, unspecified (3) Anemia SNOMED Code(s): 132365332 ICD Code: D64.9 - ANEMIA, UNSPECIFIED Status: Chronic Priority: High Current Visit: Yes Problem Details: Acute exacerbation due to GI bleed. Hemoglobin now above 9 after tranfusions. Qualifiers: Anemia type: unspecified type Qualified Code(s): D64.9 - Anemia, unspecified (4) Gastric peptic ulcer SNOMED Code(s): 496106233 ICD Code: K25.9 - GASTRIC ULCER, UNSP ACUTE OR CHRONIC, W/O HEMOR OR PERF Status: Acute Current Visit: Yes Qualifiers: Gastric ulcer chronicity: acute Qualified Code(s): K25.3 - Acute gastric ulcer without hemorrhage or perforation - Patient Summary/Data Operative Procedure(s) Performed: EGD with Bx. Colonoscopy Consults: Consultations 04/14/17 19:53 OT Evaluation and Treatment [CONS] Routine PT Evaluation and Treatment [CONS] Routine - Patient Instructions Diet: Usual Diet as Tolerated Activity: As Tolerated Showering/Bathing: May Shower Notify Provider of: Fever, Increased Pain, Nausea and/or Vomiting - Discharge Plan Prescriptions/Med Rec: Famotidine [Pepcid] 40 mg PO BID #30 tablet Famotidine [Pepcid] 40 mg PO DAILY #30 tablet Home Medications: Home Meds Acetaminophen [Tylenol] 650 mg PO Q4HR 04/14/17 [History] Aspirin [Halfprin] 81 mg PO BRK 04/14/17 [History] Carvedilol 1 tab PO BID 04/14/17 [History] Doxepin HCl [Doxepin] 10 mg PO BEDTIME 04/14/17 [History] Furosemide [Lasix] 20 mg PO BID 04/14/17 [History] Loratadine [Claritin] 10 mg PO Q48H PRN 04/14/17 [History] Losartan Potassium [Cozaar] 50 mg PO DAILY@1600 04/14/17 [History] Lovastatin [Mevacor] 10 mg PO BEDTIME 04/14/17 [History] Multivitamin [Multivitamins] 1 cap PO DAILY 04/14/17 [History] Nitroglycerin [Nitrostat] 0.4 mg SL Q5M PRN 04/14/17 [History] Sennosides/Docusate Sodium [Senokot-S Tablet] 1 tab PO BID PRN 04/14/17 [History ] Spironolactone 25 mg PO DAILY 04/14/17 [History] Ubidecarenone [Coq10] 100 mg PO DAILY 04/14/17 [History] Warfarin [Coumadin] 2.5 mg PO SUTUWETHFRSA@159904/14/17 [History] Warfarin [Coumadin] 5 mg PO MO@159904/14/17 [History] Famotidine [Pepcid] 40 mg PO BID #30 tablet 04/18/17 [Rx] Famotidine [Pepcid] 40 mg PO DAILY #30 tablet 04/18/17 [Rx] Forms: ED Department Discharge Referrals: Antonio Aguirre MD [Primary Care Provider] - (Follow up with Dr. Aguirre in 1 week for post hospitalization evaluation ) - Discharge Summary/Plan Comment DC Time >30 min.: No - General Info Date of Service: 04/18/17 - Review of Systems General: Reports: No Symptoms HEENT: Reports: No Symptoms Pulmonary: Reports: No Symptoms Cardiovascular: Reports: No Symptoms Gastrointestinal: Reports: No Symptoms Genitourinary: Reports: No Symptoms Musculoskeletal: Reports: No Symptoms Skin: Reports: No Symptoms Neurological: Reports: No Symptoms Psychiatric: Reports: No Symptoms - Patient Data Vitals - Most Recent: Last Vital Signs Temp 97.3 F 04/17/17 20:25 Pulse 65 04/17/17 20:25 Resp 12 04/17/17 20:25 BP 110/47 L 04/17/17 20:25 Pulse Ox 100 04/17/17 20:25 Weight - Most Recent: 219 lb 15.988 oz I&O - Last 24 hours: Intake & Output 04/17/17 04/18/17 04/18/17 22:59 06:59 14:59 Intake Total 240 Output Total 200 Balance 240 -200 Lab Results - Last 24 hrs: Laboratory Results - last 24 hr 04/18/17 Range/Units 06:45 WBC 7.7 (4.0-10.2) K/uL RBC 2.93 L (4.33-5.41) M/uL Hgb 9.2 L (13.1-16.8) g/dL Hct 26.8 L (39.0-49.0) % MCV 91.5 (84.0-98.0) fL MCH 31.4 (28.2-33.3) pg MCHC 34.3 (31.7-36.0) g/dL RDW 14.1 (11.2-14.1) % Plt Count 176 (150-350) K/uL Neut % (Auto) 65.2 (45.0-80.0) % Lymph % (Auto) 17.1 (10.0-50.0) % [place] % (Auto) 13.5 (2.0-14.0) % Eos % (Auto) 3.9 (0.0-5.0) % Baso % (Auto) 0.3 (0.0-2.0) % Neut # (Auto) 4.99 (1.40-7.00) K/uL Lymph # (Auto) 1.31 (0.50-3.50) K/uL [place] # (Auto) 1.03 H (0.00-1.00) K/uL Eos # (Auto) 0.30 (0.00-0.50) K/uL Baso # (Auto) 0.02 (0.00-0.20) K/uL Med Orders - Current: Current Medications Carvedilol (Coreg) 3.125 mg PO BID [facility] Last Admin: 04/17/17 17:11 Dose: 3.125 mg Lactated Ringer's (Ringers, Lactated) 1,000 mls @ 125 mls/hr IV ASDIRECTED [facility] Last Admin: 04/17/17 07:30 Dose: 125 mls/hr Lorazepam (Ativan) 1 mg IV Q6H PRN PRN Reason: Nausea/Vomiting Ondansetron HCl (Zofran) 4 mg IVPUSH Q6H PRN PRN Reason: Nausea/Vomiting Pantoprazole Sodium (Protonix Iv) 40 mg IVPUSH Q12H [facility] Last Admin: 04/18/17 08:06 Dose: 40 mg Sodium Chloride (Saline Flush) 10 ml FLUSH ASDIRECTED PRN PRN Reason: Keep Vein Open Last Admin: 04/18/17 08:06 Dose: 10 ml Discontinued Medications Bisacodyl (Dulcolax) 10 mg PO ONETIME ONE Stop: 04/15/17 18:01 Last Admin: 04/15/17 20:00 Dose: 10 mg Furosemide (Lasix) 40 mg IVPUSH ONETIME ONE Stop: 04/14/17 22:01 Last Admin: 04/14/17 22:59 Dose: 40 mg Furosemide (Lasix) 40 mg IV ONETIME ONE Stop: 04/15/17 21:01 Last Admin: 04/16/17 00:17 Dose: 40 mg Furosemide (Lasix) 40 mg IVPUSH ONETIME ONE Stop: 04/16/17 12:01 Last Admin: 04/16/17 11:24 Dose: 40 mg Furosemide (Lasix) 20 mg IVPUSH NOW ONE Stop: 04/16/17 19:26 Last Admin: 04/16/17 20:21 Dose: Not Given Furosemide (Lasix) 20 mg IVPUSH ONETIME ONE Stop: 04/16/17 19:27 Last Admin: 04/16/17 20:18 Dose: 20 mg Furosemide (Lasix) 20 mg IVPUSH ONETIME ONE Stop: 04/17/17 08:01 Last Admin: 04/17/17 07:31 Dose: 20 mg Dextrose/Sodium Chloride (Dextrose 5%-1/2 Ns) 1,000 mls @ 100 mls/hr IV ASDIRECTED [facility] Last Admin: 04/15/17 01:26 Dose: 100 mls/hr Sodium Chloride (Normal Saline) 250 mls @ 75 mls/hr IV ASDIRECTED [facility] Last Admin: 04/15/17 22:00 Dose: 75 mls/hr Sodium Chloride (Normal Saline) 1,000 mls @ 250 mls/hr IV ASDIRECTED [facility] Last Admin: 04/16/17 09:20 Dose: 250 mls/hr Lactated Ringer's (Ringers, Lactated) 1,000 mls @ 125 mls/hr IV ASDIRECTED [facility] Sodium Chloride (Normal Saline) 1,000 mls @ 100 mls/hr IV .BOLUS ONE Stop: 04/16/17 23:55 Last Admin: 04/16/17 15:06 Dose: 100 mls/hr Nitroglycerin (Nitrostat) 0.4 mg SL Q5M [facility] Last Admin: 04/15/17 02:11 Dose: Not Given Nitroglycerin (Nitrostat) 0.4 mg SL Q5M PRN PRN Reason: Chest Pain Stop: 04/14/17 21:16 Pantoprazole Sodium (Protonix Iv) 80 mg IVPUSH .BOLUS ONE Stop: 04/14/17 17:00 Last Admin: 04/14/17 17:16 Dose: 80 mg Polyethylene Glycol (Miralax) 238 gm PO ONETIME ONE Stop: 04/16/17 12:01 Last Admin: 04/16/17 12:32 Dose: 238 gm Propofol (Diprivan 20 Ml) Confirm Administered Dose 400 mg .ROUTE .STK-MED ONE Stop: 04/17/17 08:01 Last Admin: 04/17/17 19:53 Dose: Not Given - Exam General: Reports: Alert, Oriented HEENT: Reports: Pupils Equal, Pupils Reactive, EOMI, Mucous Membr. Moist/[place] Neck: Reports: Supple Lungs: Reports: Clear to Auscultation, Normal Respiratory Effort Cardiovascular: Reports: Irregular Rhythm (a fib) GI/Abdominal Exam: Normal Bowel Sounds, Soft, Non-Tender, No Organomegaly, No Distention, No Abnormal Bruit, No Mass, Pelvis Stable (Male) Exam: Deferred Rectal (Males) Exam: Deferred Extremities: Normal Inspection, Normal Range of Motion, Non-Tender, No Pedal Edema, Normal Capillary Refill Skin: Reports: Warm, Dry, Intact Neurological: Reports: No New Focal Deficit Psy/Mental Status: Reports: Alert, Normal Affect, Normal Mood *Q Meaningful Use (DIS) - VTE *Q VTE Criteria *Q: VTE Pharmacological Contraindications *Q: Risk of Bleeding VTE Anticoagulation Contraindications: Medical/Procedure Contrai - Stroke *Q Stroke Criteria *Q: - AMI *Q AMI Criteria *Q:
== END 2017-04-18 11:15 | DRG 378 ==
LOC: LL.ED 16:28 → LL.MS 17:46 → UNDOADMIN 17:46 → LL.MS 20:01 → UNDODISIN 04-18 11:15
PROVIDERS: ADMIT Emergency Medicine; ATTEND Surgery
PROC: 30233N1 Transfusion of Nonautologous Red Blood Cells into Peripheral Vein, Percutaneous Approach (ICD-10-PCS; 2017-04-15)
PROC: 0DJD8ZZ Inspection of Lower Intestinal Tract, Via Natural or Artificial Opening Endoscopic (ICD-10-PCS; principal; 2017-04-17)
PROC: 0DB68ZX Excision of Stomach, Via Natural or Artificial Opening Endoscopic, Diagnostic (ICD-10-PCS; 2017-04-17)
DX: K92.2 Gastrointestinal hemorrhage, unspecified (principal); K92.1 Melena; N17.9 Acute kidney failure, unspecified; I13.0 Hypertensive heart and chronic kidney disease with heart failure and stage 1 through stage 4 chronic kidney disease, or unspecified chronic kidney disease; N18.4 Chronic kidney disease, stage 4 (severe); I69.351 Hemiplegia and hemiparesis following cerebral infarction affecting right dominant side; E78.00 Pure hypercholesterolemia, unspecified; D64.9 Anemia, unspecified; M81.0 Age-related osteoporosis without current pathological fracture; I69.951 Hemiplegia and hemiparesis following unspecified cerebrovascular disease affecting right dominant side; I25.10 Atherosclerotic heart disease of native coronary artery without angina pectoris; I50.9 Heart failure, unspecified; K25.9 Gastric ulcer, unspecified as acute or chronic, without hemorrhage or perforation; K57.30 Diverticulosis of large intestine without perforation or abscess without bleeding; I48.91 Unspecified atrial fibrillation; E78.5 Hyperlipidemia, unspecified; N40.0 Benign prostatic hyperplasia without lower urinary tract symptoms; F41.9 Anxiety disorder, unspecified; J30.9 Allergic rhinitis, unspecified; Z79.01 Long term (current) use of anticoagulants; Z79.82 Long term (current) use of aspirin; Z79.899 Other long term (current) drug therapy
CPT/HCPCS: 36415; 86850; 86900; 86901; 86920 ×2; 86922 ×2; 96374; 99285; C9113; 00740; 36430; 80048; 82272; 83880; 85025; 85610; 88305; 97110-GP; 97161-GP; A9270-GY; J1940; J2704; J7030; J7042; J7050; J7120; P9016